=== PATIENT | female | born 1940 | race Two or more races ===

== ENCOUNTER 2017-06-14 09:33 | Emergency (ER) | payer OTHER ==
[~2017-06-14] VITALS: Ht 154.9 cm; Wt 61.2 kg
[~2017-06-14 09:33] MED LIST: ZOLOFT100 MG; ZOLOFT50 MG PO; [UNRECOGNIZED DRUG - OTHER] MC
[2017-06-14] MEDS ORDERED: PROGESTERONE100 MG (10:09)
[2017-06-14] MEDS ORDERED: MECLIZINE HCL25 MG PO (14:12)
== END 2017-06-14 14:42 | disposition home or self-care (01) ==
LOC: ER 09:33
DX: R42 Dizziness and giddiness (principal)

== ENCOUNTER 2021-02-07 10:20 | Outpatient (CLI) | payer OTHER ==
[~2021-02-07 10:20] MED LIST changes: +MECLIZINE HCL25 MG PO; +PROGESTERONE100 MG
== END 2021-02-07 10:30 | disposition home or self-care (01) ==
LOC: RAD 10:20
PROVIDERS: ATTEND Physical Medicine & Rehabilitation
DX: M17.0 Bilateral primary osteoarthritis of knee (principal); M54.2 Cervicalgia; M25.112 Fistula, left shoulder

== ENCOUNTER 2021-05-04 11:51 | Outpatient (CLI) | payer OTHER | END 2021-05-04 11:53 | disposition home or self-care (01) | LOC: RAD 11:51 | PROVIDERS: ATTEND Physical Medicine & Rehabilitation | DX: M54.59 Other low back pain (principal); M54.6 Pain in thoracic spine; M62.838 Other muscle spasm ==

== ENCOUNTER 2021-08-22 08:07 | Outpatient (CLI) | payer OTHER | END 2021-08-22 08:13 | disposition home or self-care (01) | LOC: RAD 08:07 | PROVIDERS: ATTEND Orthopaedic Surgery | DX: S52.232A Displaced oblique fracture of shaft of left ulna, initial encounter for closed fracture (principal) ==

== ENCOUNTER 2021-08-28 15:48 | Outpatient (CLI) | payer OTHER | END 2021-08-28 15:55 | disposition home or self-care (01) | LOC: RAD 15:48 | PROVIDERS: ATTEND Orthopaedic Surgery | DX: S52.232A Displaced oblique fracture of shaft of left ulna, initial encounter for closed fracture (principal) ==

== ENCOUNTER 2021-09-25 09:42 | Outpatient (CLI) | payer OTHER | END 2021-09-25 12:39 | disposition home or self-care (01) | LOC: RAD 09:42 | PROVIDERS: ATTEND Orthopaedic Surgery | DX: S52.532D Colles' fracture of left radius, subsequent encounter for closed fracture with routine healing (principal) ==